=== PATIENT | male | born 1970 | race Two or more races ===

== ENCOUNTER 2020-06-27 13:03 | Emergency (ER) | payer OTHER ==
[~2020-06-27] VITALS: Ht 177.8 cm; Wt 89.8 kg
[2020-06-27] MEDS ORDERED: PROTONIX40 MG (13:44)
== END 2020-06-27 17:06 | disposition home or self-care (01) ==
LOC: ER 13:03
DX: B34.9 Viral infection, unspecified (principal); Z20.822 Contact with and (suspected) exposure to COVID-19

== ENCOUNTER 2021-07-04 01:00 | Outpatient (CLI) | payer OTHER ==
[~2021-07-04 01:00] MED LIST: PROTONIX40 MG
== END 2021-07-04 01:30 | disposition home or self-care (01) ==
LOC: PPH VACUNA 01:00
PROVIDERS: ATTEND Emergency Medicine Pediatric Emergency Medicine
DX: Z23 Encounter for immunization (principal)

== ENCOUNTER 2022-02-06 11:27 | Emergency (ER) | payer OTHER ==
[~2022-02-06] VITALS: Ht 177.8 cm; Wt 93.9 kg
[2022-02-06] MEDS ORDERED: MULTI VITAMIN1 EACH PO (11:48)
[2022-02-06] MEDS ORDERED: NORFLEX100MG PO (13:56)
[2022-02-06] MEDS ORDERED: IBU800 MG PO (13:56)
[2022-02-06] MEDS ORDERED: CYCLOBENZAPRINE10 MG PO (13:56)
== END 2022-02-06 15:24 | disposition home or self-care (01) ==
LOC: ER 11:27
DX: M54.9 Dorsalgia, unspecified (principal)

== ENCOUNTER 2022-02-15 06:39 | Outpatient (CLI) | payer OTHER ==
[~2022-02-15 06:39] MED LIST changes: +CYCLOBENZAPRINE10 MG PO; +IBU800 MG PO; +MULTI VITAMIN1 EACH PO; +NORFLEX100MG PO
== END 2022-02-15 06:42 | disposition home or self-care (01) ==
LOC: LAB 06:39
PROVIDERS: ATTEND General Practice
DX: Z12.11 Encounter for screening for malignant neoplasm of colon (principal); N40.0 Benign prostatic hyperplasia without lower urinary tract symptoms; Z13.6 Encounter for screening for cardiovascular disorders; Z13.1 Encounter for screening for diabetes mellitus; R42 Dizziness and giddiness; R51.9 Headache, unspecified; E78.00 Pure hypercholesterolemia, unspecified

== ENCOUNTER 2022-03-03 07:44 | Outpatient (CLI) | payer OTHER | END 2022-03-03 07:46 | disposition home or self-care (01) | LOC: MRI 07:44 | PROVIDERS: ATTEND Physical Medicine & Rehabilitation | DX: M51.26 Other intervertebral disc displacement, lumbar region (principal) | CPT/HCPCS: 72148 ==

== ENCOUNTER 2023-03-30 08:12 | Outpatient (CLI) | payer OTHER | END 2023-03-30 08:29 | disposition home or self-care (01) | LOC: SONOGRAMA 08:12 | PROVIDERS: ATTEND Internal Medicine Gastroenterology | DX: R10.84 Generalized abdominal pain (principal) ==

== ENCOUNTER 2024-04-24 07:00 | Emergency (ER) | payer OTHER ==
[~2024-04-24] VITALS: Ht 177.8 cm; Wt 93.9 kg
[2024-04-24] MEDS ORDERED: 0.9 % SODIUM CHLORIDE 1,000 ML IV STA (08:40)
[2024-04-24 09:17] LABS: HEMATOCRIT 50.6 % (39.0-48.0); HEMOGLOBIN 17.6 g/dL (13-16.00); MEAN CELL VOLUME 80.2 fL (80.0-100.00); MEAN CORPUSCULAR HEMOGLOBIN 27.9 pg (27.00-32.0); MEAN CORPUSCULAR HGB CONC 34.8 g/dl (32.0-36.0); PLATELET COUNT 252 K/uL (150-450); RED BLOOD COUNT 6.31 M/uL (4.00-6.00); RED CELL DISTRIBUTION WIDTH 13.9 % (11.5-14.5)
[2024-04-24 09:45] LABS: CALCIUM 9.3 mg/dL (8.5-10.1); GFR 78.47; POTASSIUM 4.31 mEq/L (3.5-5.1)
[2024-04-24 10:42] LABS: PH,URINE 5.5 (5.0-8.0); URINE APPEARANCE Clear; URINE BILIRRUBIN Negative (NEGATIVE); URINE BLOOD Negative; URINE COLOR Yellow; URINE GLUCOSE Negative (NEGATIVE); URINE KETONE Trace (NEGATIVE); URINE LEUKOCYTE Negative; URINE NITRATE Negative; URINE PROTEIN Negative (NEGATIVE); URINE UROBILINOGEN 0.2 E.U./dl
[2024-04-24 10:46] LABS: URINE BACTERIA 8.8 uL (0.0-1933); URINE EPITHELIAL CELLS 2.4 uL (0.0-38.8); URINE RBC 2.1 uL (0.0-20.8); URINE WBC 3.2 uL (0.0-23.2)
[2024-04-24] MEDS ORDERED: LACTOBACILLUS ACIDOPHILUS 1 CAP CAP PO ONE (13:45)
== END 2024-04-24 14:46 | disposition home or self-care (01) ==
LOC: ER 07:02
PROVIDERS: Emergency Medicine
DX: K52.9 Noninfective gastroenteritis and colitis, unspecified (principal)